=== PATIENT | male | born 1950 | race Caucasian/White ===

== ENCOUNTER 2018-06-21 13:45 | Observation (INO) | payer MEDICARE ==
[~2018-06-21] VITALS: Ht 180.3 cm; Wt 117.7 kg
[2018-06-21] MEDS: ASPIRIN 81 MG TABLET CHEW PO ONE ×2 (14:00→14:18)
[2018-06-21 14:15] LABS: BASOPHILS # (AUTO) 0.07 x10^3/uL (0-0.1); BASOPHILS % (AUTO) 1 % (0-1); EOSINOPHILS % (AUTO) 4 % (1-7); LYMPHOCYTES # (AUTO) 1.95 x10^3/uL (1-3.4); LYMPHOCYTES % (AUTO) 24 % (22-44); MD NO; MEAN CORPUSCULAR HEMOGLOBIN 28.9 pg (27.5-34.5); MEAN CORPUSCULAR HGB CONC 33.6 g/dL (33.2-36.2); MEAN PLATELET VOLUME 7.3 fL (7.4-10.4); MONOCYTES # (AUTO) 0.51 x10^3/uL (0.2-0.8); MONOCYTES % (AUTO) 6 % (2-9); NEUTROPHILS # (AUTO) 5.43 x10^3/uL (1.8-6.8); NEUTROPHILS % (AUTO) 66 % (42-75); PLATELET COUNT 257 x10^3/uL (130-400); RED BLOOD COUNT 4.84 x10^6/uL (4.38-5.82); RED CELL DISTRIBUTION WIDTH 13.9 % (9.4-14.8)
[2018-06-21 14:17] LABS: ALBUMIN 3.7 g/dL (3.4-5.0); ANION GAP 6 mmol/L (5-15); CALCIUM 9.2 mg/dL (8.5-10.1); CHLORIDE 110 mmol/L (98-107); CREATININE 1.01 mg/dL (0.7-1.3)
[2018-06-21] MEDS ORDERED: ASPIRIN 81 MG TABLET CHEW ONE (14:17)
[2018-06-21 14:21] LABS: TROPONIN I < 0.015 ng/mL (0.000-0.045)
[2018-06-21] MEDS ORDERED: D3 PO (14:39)
[2018-06-21] MEDS ORDERED: PRAV40TA2 PO (14:39)
[2018-06-21] MEDS ORDERED: ASPI-515 PO (14:39)
[2018-06-21] MEDS ORDERED: OMEP20TA62 PO (14:39)
[2018-06-21] MEDS ORDERED: MULTIVITAMIN PO (14:39)
[2018-06-21] MEDS ORDERED: CALC-451 PO (14:39)
[2018-06-21] MEDS ORDERED: LAMO100T PO (14:39)
[2018-06-21] MEDS ORDERED: IBUP-1223 PO (14:39)
[2018-06-21] MEDS ORDERED: ZOLP10TA5 PO (14:39)
[2018-06-21] MEDS ORDERED: TIZA4CAP PO (14:39)
[2018-06-21] MEDS ORDERED: GLUC15006 PO (14:39)
[2018-06-21] MEDS ORDERED: SERT100T5 PO (14:39)
[2018-06-21] MEDS ORDERED: TAMS0.4C2 PO (14:39)
[2018-06-21 15:51] VITALS: BP_SYST 144; BP_SYST 150; BP_SYST 158; BP_DIAS 70; BP_DIAS 79; BP_DIAS 89
[2018-06-21] MEDS ORDERED: DOCUSATE 100 MG CAPSULE PO PRN (16:00)
[2018-06-21] MEDS ORDERED: hydrALAzine 20 MG/ML, 1ML IVPush PRN (16:00)
[2018-06-21] MEDS ORDERED: LABETALOL 5MG/ML, 20ML IVPush PRN (16:00)
[2018-06-21] MEDS ORDERED: ALUMINUM/MAG/SIMETHICONE 30 ML UDC PO PRN (16:00)
[2018-06-21] MEDS ORDERED: ACETAMINOPHEN 325 MG TABLET PO PRN (16:00)
[2018-06-21] MEDS ORDERED: morphine SULFATE 10 MG/ML, 1ML IVPush PRN (16:00)
[2018-06-21] MEDS ORDERED: NITROGLYCERIN 0.4 MG/SPRAY SL PRN (16:00)
[2018-06-21] MEDS ORDERED: POLYETHYLENE GLYCOL 17 GM PACKET PO PRN (16:00)
[2018-06-21] MEDS ORDERED: BISACODYL 10 MG SUPP PR PRN (16:00)
[2018-06-21] MEDS: HEPARIN 5,000 UNITS/ML, 1ML SQ SCH (16:25)
[2018-06-21 16:33] LABS: INTERNATIONAL NORMALIZED RATIO 1.03 (0.93-1.1); PROTHROMBIN TIME 10.6 Seconds (9.6-11.5)
[2018-06-21 16:38] LABS: FREE T4 (FREE THYROXINE) 0.96 ng/dL (0.76-1.46); TROPONIN I < 0.015 ng/mL (0.000-0.045)
[2018-06-21 16:44] LABS: THYROID STIMULATING HORMONE 0.661 mIU/L (0.358-3.740)
[2018-06-21 16:48] LABS: HEMOGLOBIN A1C 5.8 % (4.2-6.3)
[2018-06-21 19:15] VITALS: BP 137/64
[2018-06-21 19:16] VITALS: BP_SYST 119; BP_SYST 147; BP_DIAS 65; BP_DIAS 80
[2018-06-21 19:38] LABS: AMPHETAMINE SCREEN, URINE Negative (Negative); BARBITURATE SCREEN, URINE Negative (Negative); BENZODIAZEPINE SCREEN, URINE Negative (Negative); COCAINE SCREEN, URINE Negative (Negative); METHADONE SCREEN, URINE Negative (Negative)
[2018-06-21 19:40] LABS: CANNABINOID SCREEN, URINE Negative (Negative); OPIATE SCREEN, URINE Negative (Negative)
[2018-06-21] MEDS: ATORVASTATIN 40 MG TABLET PO SCH (20:11)
[2018-06-21] MEDS: SODIUM CHLORIDE FLUSH 10ML SYR IVF SCH (20:11)
[2018-06-21] MEDS: CALCIUM/VITAMIN D3 250-125 TABLET PO SCH (20:11)
[2018-06-21] MEDS: TIZANIDINE 4MG TABLET PO SCH (20:12)
[2018-06-21] MEDS: ZOLPIDEM 10MG TABLET PO SCH (21:10)
[2018-06-21 22:39] LABS: TROPONIN I < 0.015 ng/mL (0.000-0.045)
[2018-06-22] VITALS (7 sets, daily range): BP systolic 120–134; BP diastolic 52–73
[2018-06-22] MEDS: HEPARIN 5,000 UNITS/ML, 1ML SQ SCH ×3 (00:10→16:16)
[2018-06-22 05:10] LABS: CHLORIDE 110 mmol/L (98-107)
[2018-06-22 05:18] LABS: ALANINE AMINOTRANSFERASE 22 U/L (12-78); ALBUMIN 3.2 g/dL (3.4-5.0); ALKALINE PHOSPHATASE 112 U/L (45-117); ANION GAP 6 mmol/L (5-15); BILIRUBIN,TOTAL 0.4 mg/dL (0.2-1.0); CALCIUM 9.5 mg/dL (8.5-10.1); CHOL/HDL RATIO 3.6; CHOLESTEROL, TOTAL 174 mg/dL (140-239); CREATININE 0.92 mg/dL (0.7-1.3); HDL CHOL % 28 % (26-37); HDL CHOLESTEROL (DIRECT) 48 mg/dL (40-60); LDL CHOLESTEROL,CALCULATED 98 mg/dL (54-169); TOTAL PROTEIN 6.6 g/dL (6.4-8.2); TRIGLYCERIDES 138 mg/dL (50-200); VLDL CHOLESTEROL 28 mg/dL (0-25)
[2018-06-22] MEDS: ASPIRIN 325 MG TABLET EC PO SCH (05:40)
[2018-06-22] MEDS: SODIUM CHLORIDE FLUSH 10ML SYR IVF SCH ×2 (08:43→21:21)
[2018-06-22] MEDS: AMOXICILLIN/CLAV 875-125MG TABLET PO SCH ×2 (08:43→21:20)
[2018-06-22] MEDS: SODIUM CHLORIDE 0.9% 1,000 ML IV SCH ×2 (08:43→21:25)
[2018-06-22] MEDS: TAMSULOSIN 0.4 MG CAP.ER.24H PO SCH (08:43)
[2018-06-22] MEDS ORDERED: REGADENOSON 0.4 MG/5 ML SYRINGE ONE (08:43)
[2018-06-22] MEDS: LAMOTRIGINE 100 MG TABLET PO SCH (08:44)
[2018-06-22] MEDS: SERTRALINE 100MG TABLET PO SCH (08:44)
[2018-06-22] MEDS: OMEPRAZOLE 20 MG CAPSULE.DR PO SCH (08:44)
[2018-06-22] MEDS: CALCIUM/VITAMIN D3 250-125 TABLET PO SCH ×2 (08:45→21:20)
[2018-06-22] MEDS: TIZANIDINE 4MG TABLET PO SCH (21:00)
[2018-06-22] MEDS ORDERED: TIZANIDINE 2MG TABLET ONE ×2 (21:13→21:15)
[2018-06-22] MEDS: ZOLPIDEM 10MG TABLET PO SCH (21:20)
[2018-06-22] MEDS: ATORVASTATIN 40 MG TABLET PO SCH (21:20)
[2018-06-23] MEDS: HEPARIN 5,000 UNITS/ML, 1ML SQ SCH ×3 (00:18→15:50)
[2018-06-23 00:25] VITALS: BP 117/71
[2018-06-23 00:26] VITALS: BP 99/64
[2018-06-23 00:27] VITALS: BP 96/58
[2018-06-23] MEDS: ASPIRIN 325 MG TABLET EC PO SCH (05:27)
[2018-06-23 05:34] LABS: ALBUMIN 3.3 g/dL (3.4-5.0); ANION GAP 5 mmol/L (5-15); CHLORIDE 109 mmol/L (98-107)
[2018-06-23 07:37] VITALS: BP 131/68
[2018-06-23] MEDS: SODIUM CHLORIDE FLUSH 10ML SYR IVF SCH (08:16)
[2018-06-23] MEDS: CALCIUM/VITAMIN D3 250-125 TABLET PO SCH (08:16)
[2018-06-23] MEDS: TAMSULOSIN 0.4 MG CAP.ER.24H PO SCH (08:16)
[2018-06-23] MEDS: AMOXICILLIN/CLAV 875-125MG TABLET PO SCH (08:16)
[2018-06-23] MEDS: OMEPRAZOLE 20 MG CAPSULE.DR PO SCH (08:17)
[2018-06-23] MEDS: LAMOTRIGINE 100 MG TABLET PO SCH (08:22)
[2018-06-23] MEDS: SERTRALINE 100MG TABLET PO SCH (08:22)
[2018-06-23 12:41] VITALS: BP 121/63
[2018-06-23] MEDS ORDERED: AMOX1TAB12 PO (16:51)
[2018-06-23] MEDS ORDERED: LACT1CAP35 PO (16:51)
== END 2018-06-23 18:33 | disposition home or self-care (01) ==
LOC: ED 14:35 → INTOOBSV 14:36 → EDIP 14:36 → ED 14:53 → 5SO 15:44
PROVIDERS: ADMIT Hospitalist; ATTEND Hospitalist
DX: R07.89 Other chest pain (principal); R42 Dizziness and giddiness; R00.1 Bradycardia, unspecified; E78.5 Hyperlipidemia, unspecified; G47.00 Insomnia, unspecified; F32.9 Major depressive disorder, single episode, unspecified; K21.9 Gastro-esophageal reflux disease without esophagitis; N40.0 Benign prostatic hyperplasia without lower urinary tract symptoms; I65.29 Occlusion and stenosis of unspecified carotid artery; J31.0 Chronic rhinitis; J32.0 Chronic maxillary sinusitis; Z87.891 Personal history of nicotine dependence; Z79.82 Long term (current) use of aspirin; Z79.899 Other long term (current) drug therapy
CPT/HCPCS: 0399T; 36415; 70450; 71045; 78452; 80048; 80053; 80061; 80307; 82040; 83036; 83690; 83735; 83880; 84100; 84439; 84443; 84484; 85025; 85379; 85610; 93005; 93017; 93306; 93880; 96360; 96361; 96372; 99285; A9502; C9898; G0378; J1644; J2785; J7030

== ENCOUNTER → 2018-11-17 | Outpatient (CLI) | payer MEDICARE ==
[~2018-11-17] MED LIST: AMOX1TAB12 PO; ASPI-515 PO; CALC-451 PO; D3 PO; GLUC15006 PO; IBUP-1223 PO; LACT1CAP35 PO; LAMO100T PO; MULTIVITAMIN PO; OMEP20TA62 PO; PRAV40TA2 PO; SERT100T32 PO; TAMS0.4C2 PO; TIZA4CAP PO; ZOLP10TA5 PO
== END | disposition home or self-care (01) ==
LOC: RAD 14:40
PROVIDERS: ATTEND Physician Assistant
DX: N50.3 Cyst of epididymis (principal)
CPT/HCPCS: 76857; 76870

== ENCOUNTER 2019-05-16 07:49 | Outpatient (CLI) | payer MEDICARE | END 2019-05-16 23:59 | disposition home or self-care (01) | LOC: CFH 07:49 | PROVIDERS: ATTEND Family Medicine | DX: Z13.6 Encounter for screening for cardiovascular disorders (principal); R91.8 Other nonspecific abnormal finding of lung field; I25.10 Atherosclerotic heart disease of native coronary artery without angina pectoris; Z87.891 Personal history of nicotine dependence | CPT/HCPCS: 76706; G0297 ==

== ENCOUNTER → 2020-07-30 | Outpatient (CLI) | payer MEDICARE ==
[~2020-07-30] MED LIST changes: -LAMO100T PO; +LAMO100T8 PO
== END | disposition home or self-care (01) ==
LOC: CFH 15:27
PROVIDERS: ATTEND Family Medicine
DX: Z12.2 Encounter for screening for malignant neoplasm of respiratory organs (principal); R91.8 Other nonspecific abnormal finding of lung field; Z87.891 Personal history of nicotine dependence
CPT/HCPCS: G0297